=== PATIENT | female | born 1945 | race Caucasian/White ===

== ENCOUNTER 2023-03-13 04:36 | Emergency (ER) | payer OTHER ==
[~2023-03-13] VITALS: Ht 162.6 cm; Wt 81.6 kg
[2023-03-13] MEDS ORDERED: MEMA10TA PO (05:07)
[2023-03-13] MEDS ORDERED: METH4TAB PO (05:07)
[2023-03-13] MEDS ORDERED: SENN8.6T19 PO (05:07)
[2023-03-13] MEDS ORDERED: DOCU-141 PO (05:07)
[2023-03-13] MEDS ORDERED: IPRA3AMP22 IH (05:07)
[2023-03-13] MEDS ORDERED: CALC1TAB30 PO (05:07)
[2023-03-13] MEDS ORDERED: QUET50TA PO (05:07)
[2023-03-13] MEDS ORDERED: NA P133E RC (05:07)
[2023-03-13] MEDS ORDERED: CITA20TA19 PO (05:07)
[2023-03-13] MEDS ORDERED: MAGN400O6 PO (05:07)
[2023-03-13] MEDS ORDERED: BISA10SU61 RC (05:07)
[2023-03-13] MEDS ORDERED: FURO20TA4 PO (05:07)
[2023-03-13 05:17] LABS: ABG BASE EXCESS 0.9 mmol/L (-2.0-2.0); ABG HCO3 24.8 mmol/L (22.0-26.0); ABG PCO2 36.2 mmHg (35.0-48.0); ABG PH 7.453 (7.340-7.440); ABG PO2 71.2 mmHg (75.0-100.0); ABG SITE RIGHT RADIAL; ABG TOTAL HEMOGLOBIN 9.5 G/dL (12.0-16.0); AaDO2 95.1 mmHg; COHb 1.5 % (0.0-3.9); MetHb 0.3 % (0.0-1.5); O2Hb 91.5 % (94.0-97.0)
[2023-03-13] MEDS ORDERED: CEFTRIAXONE /D5W 50ML IVPB **ER PYXIS IV ONE (05:22)
[2023-03-13] MEDS ORDERED: methylPREDNISolone SOD SUCC 125 MG/2 ML VIAL ONE (05:23)
[2023-03-13 05:34] LABS: BASOPHILS % (AUTO) 0.5 % (0.0-2.0); EOSINOPHILS # (AUTO) 0.1 K/uL (0.0-0.7); EOSINOPHILS % (AUTO) 2.3 % (0.0-7.0); HEMATOCRIT 31.4 % (31.2-41.9); HEMOGLOBIN 9.4 g/dL (10.9-14.3); LYMPHOCYTES # (AUTO) 1.9 K/uL (0.8-4.8); LYMPHOCYTES % (AUTO) 42.6 % (20.5-51.5); MEAN CORPUSCULAR HEMOGLOBIN 21.1 uug (24.7-32.8); MEAN CORPUSCULAR HGB CONC 30 g/dL (32.3-35.6); MEAN CORPUSCULAR VOLUME 70.4 fL (75.5-95.3); MONOCYTES # (AUTO) 0.6 K/uL (0.1-1.30); MONOCYTES % (AUTO) 12.5 % (0.0-11.0); NEUTROPHILS # (AUTO) 1.9 K/uL (1.8-8.9); NEUTROPHILS % (AUTO) 42.1 % (38.5-71.5); PLATELET COUNT (AUTO) 257 K/uL (179-408); RED BLOOD CELL COUNT(AUTO) 4.47 MIL/uL (3.63-4.92); RED CELL DISTRIBUTION WIDTH 19.8 % (12.3-17.7); WHITE BLOOD COUNT (AUTO) 4.4 K/uL (3.8-11.8)
[2023-03-13] MEDS: CEFTRIAXONE 2 G in IV DEXTROSE 5% 100 ML IV ONE (05:38)
[2023-03-13] MEDS: methylPREDNISolone SOD SUCC 125 MG/2 ML VIAL IV ONE (05:38)
[2023-03-13] MEDS: IV NORMAL SALINE 500 ML BAG IV ONE (05:38)
[2023-03-13 05:48] LABS: DIFFERENTIAL COMMENT 1
[2023-03-13 05:52] LABS: CALCIUM 8.9 mg/dL (8.5-10.1); CARBON DIOXIDE 28 mmol/L (21-32); CHLORIDE 107 mmol/L (98-107); CREATININE 0.8 mg/dL (0.6-1.3); GLUCOSE 95 mg/dL (74-106); SODIUM SERUM 143 mmol/L (136-145); UREA NITROGEN, BLOOD 21 mg/dL (7-18)
[2023-03-13 06:06] VITALS: O2SAT 92
[2023-03-13 06:06] LABS: ALANINE AMINOTRANSFERASE 13 U/L (14-59); ALBUMIN 3.2 g/dL (3.4-5.0); ALKALINE PHOSPHATASE 97 U/L (50-136); ASPARTATE AMINOTRANSFERASE 21 U/L (15-37); BILIRUBIN,DIRECT 0.1 mg/dL (0.0-0.2); BILIRUBIN,TOTAL 0.2 mg/dL (0.2-1.0); NT-PRO BNP 79 pg/mL (0-125); TOTAL PROTEIN, SERUM 7.5 g/dL (6.4-8.2)
[2023-03-13] MEDS ORDERED: ALBUTEROL SULFATE 2.5 MG/3 ML NEBU ONE (06:07)
[2023-03-13] MEDS ORDERED: IPRATROPIUM BROMIDE 0.5 MG/2.5 ML NEBU ONE (06:08)
[2023-03-13 06:19] VITALS: O2SAT 95
[2023-03-13 06:21] VITALS: O2SAT 95
[2023-03-13] MEDS: ALBUTEROL SULFATE 2.5 MG/3 ML NEBU NEB ONE (06:21)
[2023-03-13] MEDS: IPRATROPIUM BROMIDE 0.5 MG/2.5 ML NEBU NEB ONE (06:21)
[2023-03-13] MEDS ORDERED: POTASSIUM BICARBONATE/CIT AC 25 MEQ TABLET.EFF ONE (06:34)
[2023-03-13] MEDS: POTASSIUM BICARBONATE/CIT AC 25 MEQ TABLET.EFF PO ONE (06:35)
[2023-03-13] MEDS ORDERED: IV NORMAL SALINE 250 ML IV ONE (08:39)
[2023-03-13] MEDS ORDERED: IOHEXOL 350 100 ML INFUS..BTL ONE (08:39)
[2023-03-13] MEDS ORDERED: SWABABLE VALVE TRANSFER SET EA MC ONE (08:39)
[2023-03-13 08:56] LABS: ABG BASE EXCESS 1.6 mmol/L (-2.0-2.0); ABG HCO3 26.2 mmol/L (22.0-26.0); ABG PH 7.423 (7.340-7.440); ABG PO2 74.2 mmHg (75.0-100.0); ABG SITE RIGHT BRACHIAL; ABG TOTAL HEMOGLOBIN 9.3 G/dL (12.0-16.0); AaDO2 95.2 mmHg; COHb 1.5 % (0.0-3.9); MetHb 0.3 % (0.0-1.5); O2Hb 92.2 % (94.0-97.0)
[2023-03-13 16:13] VITALS: O2SAT 97
== END 2023-03-13 19:51 | disposition short-term general hospital (02) ==
LOC: ER 04:44
DX: J44.1 Chronic obstructive pulmonary disease with (acute) exacerbation (principal); I50.9 Heart failure, unspecified; Z79.899 Other long term (current) drug therapy; Z88.1 Allergy status to other antibiotic agents
CPT/HCPCS: 36415; 36600; 71045; 71275; 82803; 83605; 83735; 84484; 85025; 87040; A4606; A4663; J0696; J2930; J3590; J7040; Q9967